=== PATIENT | male | born 1975 | race Caucasian/White ===

== ENCOUNTER → 2018-07-15 | Outpatient (CLI) | payer MEDICAID ==
--- NOTE | 2018-07-16 08:43 | RADIOLOGY REPORT (SQ) ---
EXAM DESCRIPTION: U/S SCROTUM W/O DOPPLER; U/S NON-OB PELVIS W/O DOP COMPLETED DATE/TIME: 07/15/2018 5:38 pm REASON FOR STUDY: RIGHT TESTICULAR PAIN;PELVIC AND PERINEAL PAIN N50.811 RIGHT TESTICULAR PAIN R10. 2 PELVIC AND PERINEAL PAIN COMPARISON: None. TECHNIQUE: Static and realtime christianson scale imaging of the scrotum and testes. Selected color Doppler and spectral images recorded to document blood flow. Ultrasound of the right and left inguinal region was performed, with grayscale and cine loop Valsalva images saved to pacs. LIMITATIONS: None. FINDINGS: RIGHT: TESTICLE: Normal size, 4.2 x 3.3 x 1.9 cm. Normal echotexture, with few scattered punctate calcificat ions. Normal blood flow. No mass. EPIDIDYMIS: Normal. 5 mm epididymal cyst. HYDROCELE OR VARICOCELE: No. HERNIA OR EXTRA-TESTICULAR MASS: No. OTHER: No other significant finding. LEFT: TESTICLE: Normal size, 4.3 x 2.6 x 1.8 cm. Normal echotexture, with few scattered punctate calcificat ions. Normal blood flow. No mass. EPIDIDYMIS: Normal. HYDROCELE OR VARICOCELE: No. HERNIA OR EXTRA-TESTICULAR MASS: No. OTHER: No other significant finding. Ultrasound of the bilateral inguinal regions was performed, with grayscale and cine loop Valsalva ranjeet ging. No right or left inguinal hernia. Benign-appearing small bilateral inguinal lymph nodes are p resent, less than 1.5 cm in size. IMPRESSION: ESSENTIALLY NORMAL SCROTAL ULTRASOUND. NO EVIDENCE OF TESTICULAR MASS OR TORSION. BENIGN SMALL BILATERAL INGUINAL LYMPH NODES. NO RIGHT OR LEFT INGUINAL HERNIA. TECHNICAL DOCUMENTATION: JOB ID: [id number]- All Rights Reserved Reading location - IP/workstation name: PHOTOGRAPHIC PROCESS SCREEN [facility]
--- NOTE | 2018-07-16 08:44 | RADIOLOGY REPORT (SQ) ---
EXAM DESCRIPTION: U/S SCROTUM W/O DOPPLER; U/S NON-OB PELVIS W/O DOP COMPLETED DATE/TIME: 07/15/2018 5:38 pm REASON FOR STUDY: RIGHT TESTICULAR PAIN;PELVIC AND PERINEAL PAIN N50.811 RIGHT TESTICULAR PAIN R10. 2 PELVIC AND PERINEAL PAIN COMPARISON: None. TECHNIQUE: Static and realtime christianson scale imaging of the scrotum and testes. Selected color Doppler and spectral images recorded to document blood flow. Ultrasound of the right and left inguinal region was performed, with grayscale and cine loop Valsalva images saved to pacs. LIMITATIONS: None. FINDINGS: RIGHT: TESTICLE: Normal size, 4.2 x 3.3 x 1.9 cm. Normal echotexture, with few scattered punctate calcificat ions. Normal blood flow. No mass. EPIDIDYMIS: Normal. 5 mm epididymal cyst. HYDROCELE OR VARICOCELE: No. HERNIA OR EXTRA-TESTICULAR MASS: No. OTHER: No other significant finding. LEFT: TESTICLE: Normal size, 4.3 x 2.6 x 1.8 cm. Normal echotexture, with few scattered punctate calcificat ions. Normal blood flow. No mass. EPIDIDYMIS: Normal. HYDROCELE OR VARICOCELE: No. HERNIA OR EXTRA-TESTICULAR MASS: No. OTHER: No other significant finding. Ultrasound of the bilateral inguinal regions was performed, with grayscale and cine loop Valsalva ranjeet ging. No right or left inguinal hernia. Benign-appearing small bilateral inguinal lymph nodes are p resent, less than 1.5 cm in size. IMPRESSION: ESSENTIALLY NORMAL SCROTAL ULTRASOUND. NO EVIDENCE OF TESTICULAR MASS OR TORSION. BENIGN SMALL BILATERAL INGUINAL LYMPH NODES. NO RIGHT OR LEFT INGUINAL HERNIA. TECHNICAL DOCUMENTATION: JOB ID: [id number]- All Rights Reserved Reading location - IP/workstation name: [facility]
== END ==
LOC: RAD 15:15
PROVIDERS: ATTEND Nurse Practitioner Family
DX: N50.811 Right testicular pain (principal); R10.2 Pelvic and perineal pain
CPT/HCPCS: 76856; 76870